=== PATIENT | male | born 1930 | race Caucasian/White ===

== ENCOUNTER 2018-03-10 13:42 | Inpatient (IN) | payer OTHER ==
[~2018-03-10] VITALS: Ht 152.4 cm; Wt 53.6 kg
--- NOTE | ~2018-03-10 | EKG ---
[address] [address] ELECTROCARDIOGRAM REPORT Name: ULI BRAMBILA Hetal Room #: 363-P ADM IN M.R.#: [id number] Admission: 03/10/18 Attend Phys: Wan Valencia MD Discharge: Date of : 34 Report #: [id number] THIS REPORT FOR: //name// [facility] Test Date: 2018-03-11 Test Time: 12:40:53 Pat Name: ULI BRAMBILA Department: Room: 363 P Gender: M Towerman: Christiano VENEGAS : 1930 Requested By: Clementine Pascal Order Number: [id number] MD: Rey Lora Measurements Intervals [place] Rate: 146 P: [place]: QRS: -22 QRSD: 81 T: 159 QT: 300 QTc: 468 Interpretive Statements Atrial fibrillation with rapid V-rate Inferior infarct, old Compared to ECG 03/10/2018 14:14:51 Sinus tachycardia no longer present Electronically Signed On 03-11-2018 17:23:22 MEN'S GARMENT FITTER by Rey Lora [email or web address] <ELECTRONICALLY SIGNED> By: Rey Lora MD, [facility] 03/11/18 1723 1240 1240 Rey Lora MD, [facility] /EPI
--- NOTE | ~2018-03-10 | EKG ---
[address] [place] [address] ELECTROCARDIOGRAM REPORT Name: KOSTAULI L Room #: 363-P ADM IN M.R.#: [id number] Admission: 03/10/18 Attend Phys: Wan Valencia MD Discharge: Date of : 34 Report #: [id number] THIS REPORT FOR: //name// [facility] ED Test Date: 2018-03-10 Test Time: 14:14:51 Pat Name: ULI BRAMBILA Department: Room: 363 Gender: M Youth Advocate: KF : 1930 Requested By: Helga Azar Order Number: [id number] MD: Rey Lora Measurements Intervals [place] Rate: 104 P: 23 DC: 143 QRS: -25 QRSD: 88 T: -1 QT: 328 QTc: 432 Interpretive Statements Sinus tachycardia Inferior infarct, old Poor R wave progression No previous ECG available for comparison Electronically Signed On 03-11-2018 8:14:40 MEDICAL PLANNER by Rey Lora [email or web address] <ELECTRONICALLY SIGNED> By: Rey Lora MD, [facility] 03/11/18 0814 1414 1414 Rey Lora MD, [facility] /EPI
[~2018-03-10 13:42] MED LIST: ALBUTEROL2.5 MG/31; ALPHAGAN P10 ML OP; AMARYL2 MG PO; AZOPT OPHTH1 %/10 M1; CELEXA 10 MG TA10 M1; CLARITIN10 MG; DIOVAN40 MG; GLUCOPHAGE1000 MG; K-DUR 20 MEQ T20 MEQ; LEVOTHYROXINE0.05 MG; LUMIGAN2.5 M1; MULTI-VITAMIN1 EAC5; MYLANTA 12 OZ355 M1; PEPCID40 MG; PROSCAR 5MG TABL5 M1; ROBITUSSIN15 MG/5 M1; TAMSULOSIN HCL0.4 MG PO; ZOFRAN4 MG
[2018-03-10 13:43] VITALS: BP 101/67
[2018-03-10 14:14] LABS: BASOPHILS 0.3 % (0.0-2.0); HEMATOCRIT 50.3 % (42.0-52.0); LYMPHOCYTES 3.6 % (24.0-44.0); MCH 28.9 pg (26.0-34.0); MCHC 31.8 g/dL (28.0-37.0); MCV 90.9 fL (80.0-100.0); MONOCYTES 7.4 % (1.0-8.0); PLATELET COUNT 243 thou/uL (150-400); POLYS 88.7 % (36.0-66.0); RBC 5.53 mil/uL (4.50-6.00); RDW 13.7 % (10.5-14.5); WBC 15.8 thou/uL (4.0-11.0)
[2018-03-10 14:23] LABS: CALCIUM 8.7 mg/dL (8.5-10.1); CREATININE 3.5 mg/dL (0.7-1.3)
[2018-03-10 14:25] LABS: POTASSIUM 6.4 mmol/L (3.5-5.1)
[2018-03-10 14:27] LABS: ALBUMIN 3.1 g/dL (3.4-5.0); TOTAL BILIRUBIN 0.6 mg/dL (<0.1-1.0); TOTAL PROTEIN 6.9 g/dL (6.4-8.2)
[2018-03-10 14:28] LABS: INR 1.1; PROTIME 11.1 Seconds (9.3-11.4)
[2018-03-10] MEDS ORDERED: IRON325 PO (15:13)
[2018-03-10] MEDS ORDERED: LEVEMIR SUBQ (15:15)
[2018-03-10] MEDS ORDERED: NORCO 5-325 TA1 EACH (15:15)
[2018-03-10] MEDS ORDERED: SYNTHROID75 MCG PO (15:18)
[2018-03-10] MEDS ORDERED: LATANOPROST 0.2.5 ML OPHTHALMIC (15:18)
[2018-03-10] MEDS ORDERED: LISINOPRIL40 MG PO (15:19)
[2018-03-10] MEDS ORDERED: MEGESTROL40 MG/1 M1 PO (15:20)
[2018-03-10] MEDS ORDERED: MELATONIN3 MG PO (15:21)
[2018-03-10] MEDS ORDERED: AMLODIPINE BESY10 MG PO (15:22)
[2018-03-10] MEDS ORDERED: FINASTERIDE5 MG PO (15:23)
[2018-03-10 16:09] LABS: POC CA IONIZED 4.4 mg/dL (4.5-5.3); POC CREATININE 3.6 mg/dL (0.6-1.3); POC HEMOGLOBIN 14.6 g/dL (14.0-18.0); POC POTASSIUM 5.1 mmol/L (3.5-5.1)
[2018-03-10 17:51] VITALS: BP 131/77
[2018-03-10 18:16] VITALS: BP 123/64
[2018-03-10 18:52] VITALS: BP 120/74
[2018-03-10 20:00] VITALS: BP 125/73
[2018-03-10 20:56] LABS: HEMATOCRIT 35.8 % (42.0-52.0)
[2018-03-10] MEDS ORDERED: IPRATROPIU0.2 MG/1 M INH (22:30)
[2018-03-10] MEDS ORDERED: MILK OF MA2400 MG/10 PO (22:33)
[2018-03-10] MEDS ORDERED: MIRALAX17 GM PO (22:35)
[2018-03-10] MEDS ORDERED: MUCINEX1200 MG PO (22:36)
[2018-03-10] MEDS ORDERED: GAVISCON LIQUI355 ML PO (22:38)
[2018-03-10] MEDS ORDERED: NORVASC10 MG PO (22:39)
[2018-03-10] MEDS ORDERED: NOVOLOG100 UNIT/1 SUBQ ×2 (22:40→22:42)
[2018-03-10] MEDS ORDERED: PEPCID20 MG PO (22:42)
[2018-03-10] MEDS ORDERED: SENNA8.6 MG PO (22:43)
[2018-03-10] MEDS ORDERED: TYLENOL325 MG PO (22:43)
[2018-03-10] MEDS ORDERED: VITAMIN B-1100 M1 PO (22:44)
[2018-03-10] MEDS ORDERED: VITAMIN D1000 UNI1 PO (23:02)
[2018-03-10] MEDS ORDERED: B COMPLEX1 EACH PO (23:02)
[2018-03-10] MEDS ORDERED: ONDANSETRON HCL4 M2 PO (23:03)
[2018-03-10 23:50] VITALS: BP 124/80
[2018-03-11] VITALS (8 sets, daily range): BP systolic 106–151; BP diastolic 57–86
[2018-03-11 05:02] LABS: ABSOLUTE NEUTROPHILS 10.2 thou/uL (1.4-8.2); BASOPHILS 0.6 % (0.0-2.0); HEMATOCRIT 41.3 % (42.0-52.0); HEMOGLOBIN 13.3 gm/dL (14.0-18.0); LYMPHOCYTES 2.4 % (24.0-44.0); MCH 29.1 pg (26.0-34.0); MCHC 32.3 g/dL (28.0-37.0); MCV 90.2 fL (80.0-100.0); PLATELET COUNT 180 thou/uL (150-400); RBC 4.58 mil/uL (4.50-6.00); WBC 10.9 thou/uL (4.0-11.0)
[2018-03-11 05:11] LABS: CALCIUM 7.6 mg/dL (8.5-10.1); CREATININE 2.7 mg/dL (0.7-1.3); POTASSIUM 4.9 mmol/L (3.5-5.1)
[2018-03-11 05:16] LABS: ALBUMIN 2.6 g/dL (3.4-5.0); TOTAL BILIRUBIN 0.9 mg/dL (<0.1-1.0); TOTAL PROTEIN 5.5 g/dL (6.4-8.2)
[2018-03-12 00:04] VITALS: BP 133/62
[2018-03-12 04:50] VITALS: BP 116/62
[2018-03-12 07:36] VITALS: BP 126/49
[2018-03-12 08:49] LABS: ALBUMIN 2.2 g/dL (3.4-5.0); CALCIUM 7.2 mg/dL (8.5-10.1); PHOSPHORUS 2.4 mg/dL (2.5-4.9); POTASSIUM 3.1 mmol/L (3.5-5.1)
[2018-03-12 11:47] VITALS: BP 128/61
[2018-03-12 15:38] VITALS: BP 117/45
[2018-03-12 17:17] LABS: BE(vivo) -8.5 mmol/L (-2 to +3); HCO3 15.4 mmol/L (22.0-26.0); PCO2 27.5 mmHg (35.0-45.0); PO2 61.6 mmHg (80.0-100.0); pH 7.367 (7.360-7.450); sO2 91.4 % (92.0-98.0)
[2018-03-12 20:00] VITALS: BP 142/68
[2018-03-13 03:15] VITALS: BP 159/69
[2018-03-13 08:00] VITALS: BP 152/75
[2018-03-13 11:59] VITALS: BP 153/87
[2018-03-13 18:18] VITALS: BP 170/85
[2018-03-13 19:38] VITALS: BP 165/82
[2018-03-14] VITALS (11 sets, daily range): BP systolic 144–177; BP diastolic 72–86
[2018-03-14 05:43] LABS: HEMATOCRIT 33.5 % (42.0-52.0); MCH 29.3 pg (26.0-34.0); MCHC 32.9 g/dL (28.0-37.0); RBC 3.76 mil/uL (4.50-6.00); RDW 13.6 % (10.5-14.5); WBC 5.9 thou/uL (4.0-11.0)
[2018-03-14 05:56] LABS: ALBUMIN 2.2 g/dL (3.4-5.0); CALCIUM 7.2 mg/dL (8.5-10.1); CREATININE 1.3 mg/dL (0.7-1.3)
[2018-03-14 05:58] LABS: POTASSIUM 2.8 mmol/L (3.5-5.1)
[2018-03-15 03:11] VITALS: BP 154/90
[2018-03-15 06:19] LABS: ALBUMIN 2.2 g/dL (3.4-5.0); CALCIUM 7.4 mg/dL (8.5-10.1); CREATININE 1.1 mg/dL (0.7-1.3); PHOSPHORUS 1.6 mg/dL (2.5-4.9)
[2018-03-15 06:23] LABS: POTASSIUM 2.9 mmol/L (3.5-5.1)
[2018-03-15 08:01] VITALS: BP 184/103
[2018-03-15] MEDS ORDERED: ZOSYN 3.3753.375 GM IV (09:59)
[2018-03-15] MEDS ORDERED: FENTANYL 0.50 MCG/ML IV PUSH (10:01)
[2018-03-15] MEDS ORDERED: NOVOLOG100 UNIT/1 SUBQ (10:01)
[2018-03-15 12:14] VITALS: BP 188/97
== END 2018-03-15 12:34 | disposition short-term general hospital (02) | DRG 177 ==
LOC: ER 13:42 → 3W 16:16 → EROBS 16:16 → 3W 18:19
PROVIDERS: Hospitalist; Internal Medicine Gastroenterology; Nurse Practitioner; Physician Assistant
PROC: 0D9670Z Drainage of Stomach with Drainage Device, Via Natural or Artificial Opening (ICD-10-PCS; principal; 2018-03-11)
DX: J69.0 Pneumonitis due to inhalation of food and vomit (principal); J96.00 Acute respiratory failure, unspecified whether with hypoxia or hypercapnia; K92.2 Gastrointestinal hemorrhage, unspecified; K56.609 Unspecified intestinal obstruction, unspecified as to partial versus complete obstruction; N17.9 Acute kidney failure, unspecified; E87.0 Hyperosmolality and hypernatremia; E46 Unspecified protein-calorie malnutrition; F32.9 Major depressive disorder, single episode, unspecified; H40.9 Unspecified glaucoma; E87.5 Hyperkalemia; E03.9 Hypothyroidism, unspecified; E78.5 Hyperlipidemia, unspecified; G80.9 Cerebral palsy, unspecified; R13.10 Dysphagia, unspecified; J44.9 Chronic obstructive pulmonary disease, unspecified; N18.9 Chronic kidney disease, unspecified; N40.0 Benign prostatic hyperplasia without lower urinary tract symptoms; Z66 Do not resuscitate; K21.9 Gastro-esophageal reflux disease without esophagitis; D50.9 Iron deficiency anemia, unspecified; I48.91 Unspecified atrial fibrillation; G47.00 Insomnia, unspecified; E11.22 Type 2 diabetes mellitus with diabetic chronic kidney disease; I12.9 Hypertensive chronic kidney disease with stage 1 through stage 4 chronic kidney disease, or unspecified chronic kidney disease; K59.00 Constipation, unspecified; E87.6 Hypokalemia; Z28.21 Immunization not carried out because of patient refusal; Z88.8 Allergy status to other drugs, medicaments and biological substances; Z87.891 Personal history of nicotine dependence; Z79.899 Other long term (current) drug therapy; Z68.23 Body mass index [BMI] 23.0-23.9, adult
CPT/HCPCS: 10879

== ENCOUNTER 2018-04-16 01:27 | Inpatient (IN) | payer OTHER ==
[~2018-04-16] VITALS: Ht 152.4 cm; Wt 51.4 kg
[2018-04-16] VITALS (7 sets, daily range): BP systolic 127–155; BP diastolic 64–79
[~2018-04-16 01:27] MED LIST changes: +AMLODIPINE BESY10 MG PO; +B COMPLEX1 EACH PO; +FENTANYL 0.50 MCG/ML IV PUSH; +FINASTERIDE5 MG PO; +GAVISCON LIQUI355 ML PO; +IPRATROPIU0.2 MG/1 M INH; +IRON325 PO; +LATANOPROST 0.2.5 ML OPHTHALMIC; +LEVEMIR SUBQ; +LISINOPRIL40 MG PO; +MEGESTROL40 MG/1 M1 PO; +MELATONIN3 MG PO; +MILK OF MA2400 MG/10 PO; +MIRALAX17 GM PO; +MUCINEX1200 MG PO; +NORCO 5-325 TA1 EACH; +NORVASC10 MG PO; +NOVOLOG100 UNIT/1 SUBQ; +ONDANSETRON HCL4 M2 PO; +PEPCID20 MG PO; +SENNA8.6 MG PO; +SYNTHROID75 MCG PO; +TYLENOL325 MG PO; +VITAMIN B-1100 M1 PO; +VITAMIN D1000 UNI1 PO; +ZOSYN 3.3753.375 GM IV
[2018-04-16 02:45] LABS: ABSOLUTE NEUTROPHILS 9.7 thou/uL (1.4-8.2); BASOPHILS 0.7 % (0.0-2.0); EOSINOPHILS 1.5 % (0.0-3.0); HEMATOCRIT 37.4 % (42.0-52.0); HEMOGLOBIN 12.2 gm/dL (14.0-18.0); LYMPHOCYTES 6.2 % (24.0-44.0); MCH 28.6 pg (26.0-34.0); MCHC 32.6 g/dL (28.0-37.0); MCV 87.9 fL (80.0-100.0); MONOCYTES 8.7 % (1.0-8.0); PLATELET COUNT 257 thou/uL (150-400); POLYS 82.9 % (36.0-66.0); RBC 4.26 mil/uL (4.50-6.00); RDW 13.5 % (10.5-14.5); WBC 11.7 thou/uL (4.0-11.0)
[2018-04-16] MEDS ORDERED: DIOVAN 80 MG TA80 M1 PO (02:46)
[2018-04-16] MEDS ORDERED: ELIQUIS5 MG PO (02:47)
[2018-04-16] MEDS ORDERED: IRON325 PO (02:48)
[2018-04-16] MEDS ORDERED: PROSCAR 5MG TABL5 MG PO (02:48)
[2018-04-16] MEDS ORDERED: GLUCAGON EMERGEN1 MG IM (02:49)
[2018-04-16] MEDS ORDERED: AMARYL4 MG PO (02:49)
[2018-04-16] MEDS ORDERED: MUCINEX600 MG PO (02:50)
[2018-04-16] MEDS ORDERED: NORCO 5-325 TA1 EACH PO (02:51)
[2018-04-16 02:52] LABS: URINE CLARITY CLOUDY; URINE COLOR YELLOW; URINE GLUCOSE-RANDOM* 1+ (Negative); URINE KETONES NEGATIVE (Negative); URINE PROTEIN (DIPSTICK) 2+ (Negative)
[2018-04-16 02:52] LABS: CALCIUM 8.9 mg/dL (8.5-10.1); CREATININE 1.3 mg/dL (0.7-1.3); POTASSIUM 4.5 mmol/L (3.5-5.1)
[2018-04-16] MEDS ORDERED: PROBIOTIC1 EAC1 PO (02:52)
[2018-04-16] MEDS ORDERED: IPRAT-ALBUT 0.5-3 ML INH (02:52)
[2018-04-16 02:53] LABS: URINE BILIRUBIN NEGATIVE (Negative); URINE BLOOD 2+ (Negative); URINE LEUKOCYTES-REFLEX 3+ (Negative); URINE NITRITE-REFLEX POSITIVE (Negative); URINE UROBILINOGEN 0.2 E.U./dl (0.2-1.0)
[2018-04-16] MEDS ORDERED: XALATAN2.5 ML OPHTHALMIC (02:53)
[2018-04-16] MEDS ORDERED: LEVEMIR SUBQ (02:53)
[2018-04-16] MEDS ORDERED: SYNTHROID75 MCG PO (02:54)
[2018-04-16] MEDS ORDERED: CLARITIN10 MG PO (02:54)
[2018-04-16] MEDS ORDERED: MEGESTROL400 MG/11 PO (02:55)
[2018-04-16] MEDS ORDERED: APAP650 PO (02:55)
[2018-04-16] MEDS ORDERED: MELATONIN3 MG PO (02:55)
[2018-04-16] MEDS ORDERED: BACTROBAN CREAM30 G1 TOP (02:57)
[2018-04-16] MEDS ORDERED: AZOPT OPHTH1 %/10 M1 OPHTHALMIC (02:57)
[2018-04-16 02:58] LABS: ALBUMIN 2.7 g/dL (3.4-5.0); TOTAL BILIRUBIN 0.3 mg/dL (<0.1-1.0); TOTAL PROTEIN 6.3 g/dL (6.4-8.2)
[2018-04-16] MEDS ORDERED: BIMATOPROST (02:58)
[2018-04-16] MEDS ORDERED: ALPHAGAN P5 ML OPHTHALMIC (02:59)
[2018-04-16] MEDS ORDERED: VITAMIN D1000 UNI1 PO (03:00)
[2018-04-16] MEDS ORDERED: CELEXA10 MG PO (03:00)
[2018-04-16] MEDS ORDERED: DILTIAZEM 24HR180 M1 PO (03:00)
[2018-04-16 03:01] LABS: BACTERIA-REFLEX >30 Many /HPF (None Seen); CASTS None Seen /LPF (None Seen); MUCUS None Seen strn/LPF (None Seen); SQUAMOUS None Seen /LPF (0-3); URINE RBC >20 Many /HPF (0-2); URINE WBC-REFLEX >25 Many /HPF (0-5)
[2018-04-16] MEDS ORDERED: MILK OF MA2400 MG/10 PO (03:01)
[2018-04-16] MEDS ORDERED: ZOFRAN ODT4 MG PO (03:01)
[2018-04-16 03:02] LABS: TRIPLE PHOSPHATE CRYSTALS >10 Many /LPF (None Seen)
[2018-04-16] MEDS ORDERED: GAVILAX8.5 GM PO (03:02)
[2018-04-16] MEDS ORDERED: PEPCID20 MG PO (03:02)
[2018-04-16] MEDS ORDERED: TAMSULOSIN HCL0.4 MG PO (03:03)
[2018-04-16] MEDS ORDERED: SENOKOTXTRA17.2 MG PO (03:03)
[2018-04-16] MEDS ORDERED: VITAMINE B-1100 MG PO (03:04)
--- NOTE | 2018-04-16 06:41 | NUR ---
Received pt from ED at 0215. Pt denies chest pain. Received a new vitale catheter in the ED. Nursing facility failed a couple times trying to insert a vitale. Urine came out cloudy and tested positive for UTI. Pt uses wheelchair at facility. He also uses oxygen 1L [place] every now and then. Coccyx area and heels of feet off loaded, they appear to be reddish. I.V left AC. No identified needs at the moment. Call light within reach. Will continue to monitor.
--- NOTE | 2018-04-16 15:49 | NUR ---
chart review, cm visited with pt at bedside, he is a & o x 3, with some forgetfulness, pleasant and able to make his needs know. " from [facility], use lift to transfer me, can not use electric wheel chair anymore and now in broda chair and i can not push it my self. able to feed my self. think cath was in to long maybe but now i am here."/leonel. edcuation on dcp, transition of care back to [place]. pt needed some assistance being reposition in bed rt breakfast tray here for pt to eat and he was trying to eat, laying flat in bed. cm and bedside nurse reposition him with hob up. will cont following as needed for dc needs.
--- NOTE | 2018-04-16 16:10 | NUR ---
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 PT REQUIRES ASSIST FOR BED MOBILITY AND GETS UP TO A BRODA POSITIONING CHAIR WITH THE ASSIST OF A CRISTÓBAL LIFT. PT IS NOT AN APPROPRIATE CANDIDATE FOR P.T. IN THE ACUTE CARE SETTING WE ARE UNABLE TO ESTABLISH FUNCTIONAL GOALS. PLAN IS FOR PT TO RETURN TO LTC AT [facility] PER CASE MANAGEMENT.
--- NOTE | 2018-04-16 18:06 | NUR ---
Pt stable, FC in place and draining cloudy yellow urine. Tenderness on the heels of both feet, coccyx are present, areas cleaned and barrier cream placed. Scrotum and tip pt penis and opening of the urethra are red and painful. Area cleaned and barrier cream places, Lidocaine jelly ordered to numb the pain. Pt needs assistance when eating and has good appetite. Pt had a bowel movement 2x during the shift. FC drained 2100 cc of urine. Heel elevated and pt repositioned every 2 hours.
[2018-04-17 04:28] VITALS: BP 193/45
[2018-04-17 05:50] LABS: HEMATOCRIT 33.7 % (42.0-52.0); HEMOGLOBIN 11.1 gm/dL (14.0-18.0); MCH 29.2 pg (26.0-34.0); MCV 88.4 fL (80.0-100.0); RBC 3.82 mil/uL (4.50-6.00); RDW 13.3 % (10.5-14.5); WBC 7.3 thou/uL (4.0-11.0)
[2018-04-17 06:09] LABS: CREATININE 1.1 mg/dL (0.7-1.3); MAGNESIUM 2.6 mg/dL (1.8-2.4); POTASSIUM 4.4 mmol/L (3.5-5.1)
--- NOTE | 2018-04-17 06:58 | NUR ---
Assumed care at 1845. Pt resting in bed. Applied barrier cream on coccyx and lotion on heel. Elevated the feet. Pt denies chest pain. Nelson catheter draining well. Urine is still dark and cloudy. No identified needs at the moment. Will continue to monitor.
[2018-04-17 08:06] VITALS: BP 130/64
--- NOTE | 2018-04-17 08:06 | NUR ---
OCCUPATIONAL THERAPY RECEIVED ORDERS TO EVAL AND TREAT. 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 FACILITY USES A CRISTÓBAL LIFT TO GET PT UP TO A BRODA POSITIONING CHAIR. PT REQUIRES TOTAL ASSIST FOR ALL ADLS. PT IS NOT AN APPRORIATE CANIDATE FOR O.T. IN THE ACUTE CARE SETTING WE ARE UNABLE TO ESTABLISH FUNCTIONAL GOALS.
[2018-04-17 08:51] VITALS: BP 130/64
[2018-04-17] MEDS ORDERED: CIPRO500 MG PO (11:49)
[2018-04-17] MEDS ORDERED: LIDOCAINE 2%2 %/5 GM TOP (11:49)
[2018-04-17] MEDS ORDERED: PHENAZOPYRIDIN100 M1 PO (11:49)
--- NOTE | 2018-04-17 13:46 | NUR ---
DISCHARGE ORERS RECEIVED. PATIENT DISCHARGING TO [facility]. CHART COPIED PER TECHNICAL MARKETING ENGINEER. ORDERS FAXED TO [facility]. [facility] TO TRANSPORT PATIENT 1530 HOURS. DAUGHTER AJIRO NOTIFIED. UNIT RN NOTIFIED AND CONTACT NUMBER FOR REPORT PROVIDED. UNIT CM/SW AWARE.
--- NOTE | 2018-04-17 17:25 | NUR ---
Pt stable through out the shift, had no issues of pain except for his heels. Off spray machine loader boots applied and instructions given to the pt. Bed bath given, barrier cream applied to heels and sacral area. Lidocaine jelly applied to the tip of the penis , opening of the urethra. No issues or complaints verbalized by the pt. DC orders given, pt has been picked up by transport.
== END 2018-04-17 17:58 | DRG 698 ==
LOC: ER 01:27 → EROBS 02:45 → 4W 02:45
PROVIDERS: Emergency Medicine; ADMIT Internal Medicine
DX: T83.028A Displacement of other urinary catheter, initial encounter (principal); G92 Toxic encephalopathy; E43 Unspecified severe protein-calorie malnutrition; N39.0 Urinary tract infection, site not specified; K21.9 Gastro-esophageal reflux disease without esophagitis; H40.9 Unspecified glaucoma; E03.9 Hypothyroidism, unspecified; J44.9 Chronic obstructive pulmonary disease, unspecified; F32.9 Major depressive disorder, single episode, unspecified; E11.9 Type 2 diabetes mellitus without complications; I48.0 Paroxysmal atrial fibrillation; G80.9 Cerebral palsy, unspecified; I10 Essential (primary) hypertension; N40.1 Benign prostatic hyperplasia with lower urinary tract symptoms; R33.8 Other retention of urine; E78.5 Hyperlipidemia, unspecified; Y83.8 Other surgical procedures as the cause of abnormal reaction of the patient, or of later complication, without mention of misadventure at the time of the procedure; Y92.89 Other specified places as the place of occurrence of the external cause; Z87.891 Personal history of nicotine dependence; Z79.01 Long term (current) use of anticoagulants; Z79.4 Long term (current) use of insulin; Z79.899 Other long term (current) drug therapy; Z88.8 Allergy status to other drugs, medicaments and biological substances
CPT/HCPCS: 10040

== ENCOUNTER 2018-08-19 14:54 | Emergency (ER) | payer OTHER ==
[~2018-08-19] VITALS: Ht 152.4 cm; Wt 68.0 kg
[~2018-08-19 14:54] MED LIST changes: +ALPHAGAN P5 ML OPHTHALMIC; +AMARYL4 MG PO; +APAP650 PO; +AZOPT OPHTH1 %/10 M1 OPHTHALMIC; +BACTROBAN CREAM30 G1 TOP; +BIMATOPROST; +CELEXA10 MG PO; +CIPRO500 MG PO; +CLARITIN10 MG PO; +DILTIAZEM 24HR180 M1 PO; +DIOVAN 80 MG TA80 M1 PO; +ELIQUIS5 MG PO; +GAVILAX8.5 GM PO; +GLUCAGON EMERGEN1 MG IM; +IPRAT-ALBUT 0.5-3 ML INH; +LIDOCAINE 2%2 %/5 GM TOP; +MEGESTROL400 MG/11 PO; +MUCINEX600 MG PO; +NORCO 5-325 TA1 EACH PO; +PHENAZOPYRIDIN100 M1 PO; +PROBIOTIC1 EAC1 PO; +PROSCAR 5MG TABL5 MG PO; +SENOKOTXTRA17.2 MG PO; +VITAMINE B-1100 MG PO; +XALATAN2.5 ML OPHTHALMIC; +ZOFRAN ODT4 MG PO
[2018-08-19 17:19] LABS: EOSINOPHILS 7.5 % (0.0-3.0); HEMATOCRIT 29.6 % (42.0-52.0); HEMOGLOBIN 9.3 gm/dL (14.0-18.0); LYMPHOCYTES 21.2 % (24.0-44.0); MCH 27.6 pg (26.0-34.0); MCHC 31.6 g/dL (28.0-37.0); MCV 87.4 fL (80.0-100.0); MONOCYTES 12.6 % (1.0-8.0); PLATELET COUNT 298 thou/uL (150-400); POLYS 57.7 % (36.0-66.0); RBC 3.38 mil/uL (4.50-6.00); RDW 15.4 % (10.5-14.5); WBC 5.1 thou/uL (4.0-11.0)
[2018-08-19 17:27] LABS: CALCIUM 9.2 mg/dL (8.5-10.1); CREATININE 1.3 mg/dL (0.7-1.3); POTASSIUM 4.6 mmol/L (3.5-5.1)
[2018-08-19 20:01] LABS: URINE BILIRUBIN NEGATIVE (Negative); URINE BLOOD 2+ (Negative); URINE CLARITY CLOUDY; URINE COLOR YELLOW; URINE GLUCOSE-RANDOM* NEGATIVE (Negative); URINE KETONES TRACE (Negative); URINE NITRITE-REFLEX NEGATIVE (Negative); URINE PROTEIN (DIPSTICK) TRACE (Negative); URINE UROBILINOGEN 0.2 E.U./dl (0.2-1.0)
[2018-08-19 20:04] LABS: URINE LEUKOCYTES-REFLEX 3+ (Negative)
[2018-08-19 20:15] LABS: SQUAMOUS 0-3 Few /LPF (0-3); YEAST-REFLEX Present (None Seen)
[2018-08-19 20:16] LABS: BACTERIA-REFLEX >30 Many /HPF (None Seen); CASTS None Seen /LPF (None Seen); CRYSTALS None Seen /LPF (None Seen); URINE RBC 0-2 Rare /HPF (0-2); URINE WBC-REFLEX >25 Many /HPF (0-5)
[2018-08-19] MEDS ORDERED: KEFLEX500 M1 PO (20:52)
[2018-08-19 23:25] VITALS: BP 131/74
== END 2018-08-19 23:27 | disposition home or self-care (01) ==
LOC: ER 14:54
PROVIDERS: Physician Assistant
DX: N39.0 Urinary tract infection, site not specified (principal); R33.9 Retention of urine, unspecified; Z46.6 Encounter for fitting and adjustment of urinary device; K21.9 Gastro-esophageal reflux disease without esophagitis; E03.9 Hypothyroidism, unspecified; G80.9 Cerebral palsy, unspecified; J44.9 Chronic obstructive pulmonary disease, unspecified; E11.9 Type 2 diabetes mellitus without complications; I10 Essential (primary) hypertension; N40.0 Benign prostatic hyperplasia without lower urinary tract symptoms; I48.91 Unspecified atrial fibrillation; Z79.4 Long term (current) use of insulin; Z79.899 Other long term (current) drug therapy; Z87.891 Personal history of nicotine dependence; Z88.8 Allergy status to other drugs, medicaments and biological substances